=== PATIENT | male | born 1945 | race Caucasian/White ===

== ENCOUNTER 2020-07-06 06:36 | Observation (INO) ==
--- NOTE | 2020-06-16 11:48 | PAT Medication Instructions ---
Medication Instructions Date of Service June 16, 2020 Home Medications citalopram 20 mg PO QAM levothyroxine 150 mcg PO QAM meloxicam 15 mg PO QAM pramipexole 0.125 mg PO TID simvastatin 20 mg PO QAM zolpidem 10 mg PO HS tramadol 50 mg PO Q6H PRN ASK your surgeon for instructions meloxicam 15 mg PO QAM Take morning of surgery With a small sip of water, OTHERWISE NOTHING TO EAT OR DRINK AFTER MIDNIGHT: citalopram 20 mg PO QAM levothyroxine 150 mcg PO QAM pramipexole 0.125 mg PO TID simvastatin 20 mg PO QAM tramadol 50 mg PO Q6H PRN (if needed, may be taken up to four hours before surgery) Take evening before surgery pramipexole 0.125 mg PO TID zolpidem 10 mg PO HS tramadol 50 mg PO Q6H PRN (if needed) Other Notes If you have any questions please call us at [phone] or [phone] or [phone] or [phone]
--- NOTE | 2020-06-17 13:59 | Anesthesiology Consultation ---
Date of Service June 17, 2020 Assessment & Plan (1) Encounter for pre-operative examination: Chart Review Chart Review: Acceptable Risk for Surgery (pending surgeon ordered PCP clearance and preop Covid testing ) and Patient NOT seen in Pre Admission Testing Awaiting surgeon ordered PCP clearance- done 06/16/20 Per PAT appt on 06/17/20, pt denies any recent travel. No known Covid positive contacts or Covid related symptoms. No known Covid infection in the past 90 days. 06/24/20. Educated on importance of self quarantining, social distancing and wearing mask in public both for the patient and household contacts. Teaching & Discussion Pre-Anesthesia Teaching/Discussion Notes: Instructed NPO after midnight before surgery,except medications with 15 cc of water. Medication instructions provided according to the [facility] guidelines. History Surgery Operation Date: 06/29/20 13:05 Proposed Procedures p Right Total Knee Arthroplasty - Natalio Sharp DO Height/Weight Height: 5 ft 9 in Weight: 82.5 kg Allergies Allergy/AdvReac Type Severity Reaction Status Date / Time chlorhexidine Allergy Severe ? RELATED Verified 06/01/20 13:19 TO LAST KNEE INFECTION Medications Home Medications Medication Instructions Recorded Confirmed Last Taken citalopram 20 mg PO QAM 07/15/19 06/01/20 Unknown levothyroxine 150 mcg PO QAM 07/15/19 06/01/20 Unknown meloxicam 15 mg PO QAM 07/15/19 06/01/20 Unknown pramipexole 0.125 mg PO TID 07/15/19 06/01/20 Unknown simvastatin 20 mg PO QAM 07/15/19 06/01/20 Unknown zolpidem 10 mg PO HS 07/15/19 06/01/20 Unknown tramadol 50 mg PO Q6H PRN 06/01/20 06/01/20 Unknown Past Medical History Medical History Anxiety Cerebral aneurysm AGE 16> PT'S UNAWARE OF SIZE, DOES NOT HAVE TO GET IT CHECKED ANYMORE - STAYED STABLE IN SIZE Degenerative disc disease DJD (degenerative joint disease) Hyperlipidemia Hypothyroidism Osteoarthritis Restless leg syndrome Exercise / Class Metabolic Activity II 4-5 Yardwork/Stairs/Walk up hill (ONE FLIGHT OF STAIRS - NO CHEST PAIN OR SOB ) Past Family History Family History Other No significant family history Past Surgical History Surgical History History of carpal tunnel release RIGHT History of colonoscopy History of herniorrhaphy RT/LEFT INGUINAL History of skin cancer REMOVED FROM NOSE History of tonsillectomy History of tooth extraction History of total knee replacement LEFT Retinal tear of right eye REPAIRED Past Anesthesia History No Hx of Anesthesia Complications and No Family Hx of Anesthesia Complications History of PONV No Hx of PONV and No Hx of Motion Sickness Social History Smoking Status: Current every day smoker tobacco type: cigarettes Smoking cigarettes per day: 10 CIG DAILY Do You Dip or Chew Tobacco: No Hx Alcohol Use: Yes Alcohol type: beer alcohol intake frequency: 3 or more drinks per day Alcohol Intake Frequency Comment: 3 beers per day Hx Substance Use: No substance use type: does not use Review of Systems Rare reflux- diet dependent Patient denies chest pain, shortness of breath, dyspnea on exertion, cough, wheezing, palpitations. No hx of seizures, stroke, UT, apnea/snoring. No hx of blood clots or blood transfusions Physical Exam Vital Signs VITALS BP 130/57 P 60 TEMP 98.0 SP02 96% RESP 16 Constitutional no acute distress ENMT Mouth: no TMJ clicking Thyromental Distance: > or= 3.5 Finger Breadths (4.0) Mallampati Class: II (smaller airway ) Neck + limited neck extension Respiratory normal respiratory effort; no respiratory distress Auscultation: no wheezes Minimal course breath sounds throughout otherwise CTA Cardiovascular Rate/Rhythm: regular rate and regular rhythm Heart Sounds: no murmur Vessels: no carotid bruit Musculoskeletal Spine: no pain with cervical ROM Extremities: extremities normal to inspection Psychiatric Orientation: alert Testing Laboratory Results 06/17/20 14:18 06/17/20 14:18 PT 9.9 Seconds (9.0-12.0) 06/17/20 14:18 INR 1.0 (0.9-1.1) 06/17/20 14:18 APTT 26.4 Seconds (21.0-31.0) 06/17/20 14:18 Hemoglobin A1c 5.9 % (4.5-5.6) H 06/17/20 14:18 Urine Color Yellow 06/17/20 14:18 Urine Appearance Clear (Clear) 06/17/20 14:18 Urine pH 5.0 (4.5-7.5) 06/17/20 14:18 Ur Specific [place] 1.026 (1.000-1.030) 06/17/20 14:18 Urine Protein Negative (Negative) 06/17/20 14:18 Urine Glucose (UA) Negative (Negative) 06/17/20 14:18 Urine Ketones 1+ (Negative) H 06/17/20 14:18 Urine Nitrite Negative (Negative) 06/17/20 14:18 Ur Leukocyte Esterase Negative (Negative) 06/17/20 14:18 Blood Type A Positive 06/17/20 14:18 Antibody Screen NEGATIVE 06/17/20 14:18 Electrocardiogram Date: 06/17/20 Findings: + NSR @ (60bpm) and + no change from (Feb 14, 2014 per cardio ) Normal EKG. Chest X-Ray Date: 06/17/20 FINDINGS: Cardiomediastinal and hilar silhouettes are within normal limits. Chronic interstitial coarsening has mildly progressed from comparison (comparison from 2013). Calcified plaque the thoracic aorta. No pneumothorax, pleural effusion or overt pulmonary edema. Hyperinflation with mild diaphoretic flattening. IMPRESSION: Chronic interstitial coarsening without acute process. Echocardiogram Date: 05/13/16 EF: 60% LV Function: normal RWMA: + none Valvular Disease: + no significant valvular disease Aortic valve mildly thickened. No aortic insufficiency. Stress Test Date: 06/12/18 Type: exercise Nonspecific symptoms of exercise stress. Hemodynamic response to stress was normal. Exercise capacity was limited due to left knee pain and dyspnea. Nondiagnostic for ischemia due to artifact and not achieving target heart rate. MPHR 81%. 4 METS achieved.
--- NOTE | 2020-06-17 15:00 | XRay Report ---
XR chest Pre-admission PA/Lat HISTORY: 74 years-old Male pat preoperative exam. No acute chest complaints COMPARISON: Chest radiograph 10/14/2013 TECHNIQUE: PA and lateral views of the chest FINDINGS: Cardiomediastinal and hilar silhouettes are within normal limits. Chronic interstitial coarsening has mildly progressed from comparison. Calcified plaque the thoracic aorta. No pneumothorax, pleural eff usion or overt pulmonary edema. Hyperinflation with mild diaphoretic flattening. Degenerative changes of the shoulders and spine. IMPRESSION: Chronic interstitial coarsening without acute process. ACT 112: Negative or not required by law. The above report was generated using voice recognition software. It may contain grammatical, syntax o r spelling errors. Electronically signed by: Eric Davis M.D. 06/17/2020 2:59 PM
[2020-06-17 15:22] LABS: Basophils # (auto) 0.01 K/uL (0-0.2); Basophils % (auto) 0.2 %; Eosinophils # (auto) 0.09 K/uL (0-0.5); Eosinophils % (auto) 1.4 %; Hematocrit (blood only) 39.7 % (42-52); Hemoglobin 14.2 g/dL (14.0-18.0); Immature Granulocytes # (auto) 0.01 K/uL (0.00-0.02); Immature Granulocytes % (auto) 0.2 %; Lymphocytes % (auto) 34.8 %; Mean Corpuscular Hemoglobin 35.6 pg (25-34); Mean Corpuscular Hgb Conc 35.8 g/dL (32-36); Mean Corpuscular Volume 99.5 fL (80-100); Monocytes # (auto) 0.43 K/uL (0.11-0.59); Monocytes % (auto) 6.5 %; Neutrophils # (auto) 3.77 K/uL (1.4-6.5); Neutrophils % (auto) 56.9 %; Platelet Count 209 K/uL (130-400); RDW Coefficient of Variation 13.2 % (11.5-14.5); RDW Standard Deviation 47.9 fL (36.4-46.3); Red Blood Count 3.99 M/uL (4.7-6.1); White Blood Count 6.61 K/uL (4.8-10.8)
[2020-06-17 15:39] LABS: Partial Thromboplastin Time 26.4 Seconds (21.0-31.0); Prothrombin Time 9.9 Seconds (9.0-12.0)
[2020-06-17 15:42] LABS: Appearance Urine Clear (Clear); Bilirubin Urine Negative (Negative); Blood Urine Negative (Negative); Color Urine Yellow; Glucose Urine UA Negative (Negative); Ketones Urine 1+ (Negative); Leukocyte Esterase Urine Negative (Negative); Nitrite Urine Negative (Negative); Protein Urine Negative (Negative); Specific Gravity Urine 1.026 (1.000-1.030); Urobilinogen Urine Negative (Negative)
--- NOTE | 2020-06-17 16:10 | Electrocardiogram Report ---
Test Reason : Blood Pressure : / mmHG Vent. Rate : 060 BPM Atrial Rate : 060 BPM P-R Int : 166 ms QRS Dur : 102 ms QT Int : 440 ms P-R-T Axes : 066 055 063 degrees QTc Int : 440 ms Normal sinus rhythm Normal ECG When compared with ECG of 14-OCT-2013 13:16, No significant change was found Confirmed by Waylon Donovan ([id number]) on 06/17/2020 4:10:08 PM Referred By: Natalio Sharp Confirmed By:Naveen Donovan
[2020-06-17 16:21] LABS: Albumin Level 3.8 gm/dl (3.4-5.0); BUN Creatinine Ratio 19.5 (10-20); Creatinine Clr Calc Pharmacy 52.7 ml/min; Est GFR (African American) 67.5; Est GFR (Non-African American) 58.2; Potassium 4.1 mmol/L (3.5-5.1)
[2020-06-18 07:14] LABS: Estimated Average Glucose 123 mg/dl; Hemoglobin A1C 5.9 % (4.5-5.6)
--- NOTE | 2020-07-04 11:22 | History & Physical Report ---
Date of Service July 06, 2020 Assessment & Plan (1) Degenerative joint disease of knee, right: I have indicated the patient for right total knee replacement. The risks, benefits and complications of surgery were explained to the patient which include but not limited to infection, acute blood loss, DVT/PE, injury to nerves, vessels, bone, soft tissue, arthrofibrosis, chronic pain, failure of the prosthesis, knee dislocation, leg length discrepancy, need for additional surgery, cardiac and pulmonary events and . The patient wished to proceed with surgery and informed consent was obtained at this time. We will plan for 81mg ASA BID post-operatively for DVT prophylaxis. Upon discharge the patient will be discharged home with home health services. Appropriate clearances by PC P, cardio were obtained. History of Present Illness Chief Complaint: Right knee pain/DJD Primary Care Provider: Enrike Otto The patient is a 74 year old male who presents with complaints of severe right knee pain and DJD. The patient has failed outpatient conservative treatments to this point which included NSAIDs, IA corticosteroid and QUEEN injections, PT and HEP. The patient's pain and limited function have progressed to the point where they severely hinder their activities of daily living and they no longer tolerate exercise programs. They are requesting to proceed with total knee replacement surgery. Allergies Allergy/AdvReac Type Severity Reaction Status Date / Time chlorhexidine Allergy Severe ? RELATED Verified 06/01/20 13:19 TO LAST KNEE INFECTION Home Medications Medication Instructions Recorded Confirmed Type citalopram 20 mg PO QAM 07/15/19 06/01/20 History levothyroxine 150 mcg PO QAM 07/15/19 06/01/20 History meloxicam 15 mg PO QAM 07/15/19 06/01/20 History pramipexole 0.125 mg PO TID 07/15/19 06/01/20 History simvastatin 20 mg PO QAM 07/15/19 06/01/20 History zolpidem 10 mg PO HS 07/15/19 06/01/20 History tramadol 50 mg PO Q6H PRN 06/01/20 06/01/20 History Past Med/Surg History Medical History Anxiety Cerebral aneurysm AGE 16> PT'S UNAWARE OF SIZE, DOES NOT HAVE TO GET IT CHECKED ANYMORE - STAYED STABLE IN SIZE Degenerative disc disease DJD (degenerative joint disease) Hyperlipidemia Hypothyroidism Osteoarthritis Restless leg syndrome Surgical History History of carpal tunnel release RIGHT History of colonoscopy History of herniorrhaphy RT/LEFT INGUINAL History of skin cancer REMOVED FROM NOSE History of tonsillectomy History of tooth extraction History of total knee replacement LEFT Retinal tear of right eye REPAIRED Family History Other No significant family history Social History Smoking Status: Current every day smoker Cigarettes Per Day: 10 CIG DAILY; Smoking End Date: 2 yrs ago; Second Hand Exposure: No; Do You Dip or Chew Tobacco: No; Tobacco Cessation Education Requested by Patient: No Hx Alcohol Use: Yes Alcohol type: beer Hx Substance Use: No Preferred Language: Uzbek Communication Ability: Effective Nuclear Waste Process Operator Required: No Beliefs That Will Affect Care: None Current Living Situation: Spouse Other Information That Helps Us Care for You: No Feels Safe at Home: Yes Safety Concerns: Feels Safe At This Time Assistive Devices: Denture - Upper, Denture - Lower and Glasses Review of Systems Review of Systems: All systems reviewed & are unremarkable except as noted in HPI & below Constitutional: as per Subjective / HPI Physical Exam Physical Exam: RLE NVSI +EHL/FHL/TA/GS SILT grossly, +2 DP pulse, compartments soft NT, limited painful ROM, 0-115 degrees flexion, +crepitus. Constitutional: WD/WN, vitals as above Eyes: PERRL, conjunctivae normal, anicteric sclerae ENMT: external ear and nose normal, oropharynx normal Neck: trachea midline, no thyromegaly Respiratory: normal respiratory effort, lungs clear to auscultation Cardiovascular: RRR, no murmur, no edema Gastrointestinal (Abdomen): normal bowel sounds, soft, nontender, no hepatos plenomegaly Musculoskeletal: no cyanosis or clubbing, extremities motor strength 5/5 Skin: no rashes, warm and dry Neurologic: patellar DTR's 2+ bilat, sensation intact Psychiatric: A+Ox3, euthymic affect Lymphatic: no cervical or axillary lymphadenopathy Results & Data Results & Data ([facility]) Diagnostic Findings Multiple views of the knee demonstrates severe tricompartmental DJD with complete loss of the medial joint space. +osteophytes, +sclerosis, +subchondral cysts. Pre Admission Testing Addendum Laboratory Results 06/17/20 14:18 06/17/20 14:18 PT 9.9 Seconds (9.0-12.0) 06/17/20 14:18 INR 1.0 (0.9-1.1) 06/17/20 14:18 APTT 26.4 Seconds (21.0-31.0) 06/17/20 14:18 Hemoglobin A1c 5.9 % (4.5-5.6) H 06/17/20 14:18 Urine Color Yellow 06/17/20 14:18 Urine Appearance Clear (Clear) 06/17/20 14:18 Urine pH 5.0 (4.5-7.5) 06/17/20 14:18 Ur Specific [place] 1.026 (1.000-1.030) 06/17/20 14:18 Urine Protein Negative (Negative) 06/17/20 14:18 Urine Glucose (UA) Negative (Negative) 06/17/20 14:18 Urine Ketones 1+ (Negative) H 06/17/20 14:18 Urine Nitrite Negative (Negative) 06/17/20 14:18 Ur Leukocyte Esterase Negative (Negative) 06/17/20 14:18 Blood Type A Positive 06/17/20 14:18 Antibody Screen NEGATIVE 06/17/20 14:18 06/17/20 14:18 Urine Culture - Final Urine,Clean Catch No growth - less than 1,000 colonies/mL.
[~2020-07-06 06:36] MED LIST: ACETAMINOPHEN 500 MG TAB PO SCH; BUPIVACAINE 0.5 % 5 MG/1 ML PF 10ML VIAL ONE; CeleBREX 200 MG CAP PO SCH; EPINEPHrine INJ 1 MG/ML AMP ONE; FAMOTIDINE 20 MG TAB PO SCH; LR 500ML BOLUS, THEN 15ML/HR IV SCH; METOCLOPRAMIDE HCL 10 MG TABLET PO SCH; ROPIVACAINE 0.5% 5 MG/ML 30 ML VIAL ONE; ROPIVACAINE 0.5% HCL/PF 150 MG, BUPIVACAINE 0.75% MPF 20 ML, EPINEPHrine 30MG/30ML (OR ... INFIL SCH; ROPIVACAINE 0.5% HCL/PF 150 MG, BUPIVACAINE 0.75% MPF 20 ML, EPINEPHrine 30MG/30ML (OR ... INSTIL SCH; TRANEXAMIC ACID 1,000 MG **IV Intra-op IV SCH; TRANEXAMIC ACID 1,000 MG **IV Pre-op IV SCH; ceFAZolin 2000MG 2,000 MG/15 ML SYR IV SCH; dexAMETHasone 4 MG TAB PO SCH
[2020-07-06] MEDS ORDERED: fentaNYL citrate 100 MCG/2 ML VIAL ONE (06:47)
[2020-07-06] MEDS ORDERED: LIDOCAINE HCL 2% 2 ML VIAL/AMP(20MG/ML) INFIL ONE (06:47)
[2020-07-06] MEDS ORDERED: ONDANSETRON INJ 2 MG/ML 2 ML VIAL ONE (06:47)
[2020-07-06] MEDS ORDERED: MIDAZOLAM HCL 1 MG/ML 2ML VIAL ONE (06:47)
[2020-07-06] MEDS ORDERED: PROPOFOL IV EMULSION 10 MG/ML 20 ML VIAL IV ONE ×2 (06:47→08:41)
--- NOTE | 2020-07-06 07:23 | History & Physical Bridge Note ---
Date of Service July 06, 2020 History & Physical Bridge Note I have examined the patient, reviewed the History & Physical and in the interval since the performance of the History & Physical I have noted the following changes of clinical significance: no changes noted
[2020-07-06] MEDS ORDERED: ORTHO JOINT ANESTHETIC ONE (07:24)
[2020-07-06] MEDS ORDERED: BACITRACIN INJ 50,000 UNIT VIAL ONE (07:24)
[2020-07-06] MEDS ORDERED: ALBUTEROL HFA INHALER 8.5 GM ONE (08:53)
--- NOTE | 2020-07-06 10:31 | Post Operative Brief Note ---
Immediate Post Op Note v1 Date of Surgery July 06, 2020 Pre & Post Diagnosis Operation Date: 07/06/20 09:00 Pre-Op Diagnosis: Unilateral Primary Osteoarthritis, Right Knee Post-Op Diagnosis: Unilateral Primary Osteoarthritis, Right Knee I identified the patient and participated in the time-out.: Yes Procedure Operation Date: 07/06/20 09:00 <No data on this case meets the specified criteria> Surgeon Natalio Sharp DO Professional Athletes Coach Amor Torres Estimated Blood Loss 55 Findings Consistent with Post-Op Diagnosis Fluids See anesthesia report Specimens Proximal tibia and distal femur bone fragment Anesthesia Type Spinal MAC Complications none Disposition Disposition: Recovery Room Overlapping Procedure I was present for: the critical portions of procedure. I was immediately available: during the entire case. Back up surgeon: was not required during procedure.
--- NOTE | 2020-07-06 10:33 | Operative Report ---
Post Operative Report Pre & Post Diagnosis Operation Date: 07/06/20 09:00 Pre-Op Diagnosis: Unilateral Primary Osteoarthritis, Right Knee Post-Op Diagnosis: Unilateral Primary Osteoarthritis, Right Knee I identified the patient and participated in the time-out.: Yes Procedure Operation Date: 07/06/20 09:00 Right total knee replacement - Natalio Sharp DO Surgeon Natalio Sharp DO Kiln Repairer Amor Torres Estimated Blood Loss 55 Findings Consistent with Post-Op Diagnosis Fluids See anesthesia report Specimens Proximal tibia and distal femur bone fragments Anesthesia Type Spinal MAC Complications none Disposition Disposition: Recovery Room Indications The patient is a 74-year-old male presents with long history of severe right knee tricompartmental DJD and failed outpatient conservative treatments including NSAIDs, bracing, injections and home walking/exercise program. The patient's symptoms have progressed to the point where it has been difficult to perform normal activities of daily living. I have indicated the patient for a right total knee arthroplasty, the risks and benefits and complications of the procedure include but are not limited to infection bleeding damage to bone, nerves, vessels, surrounding soft tissue, blood clots, loss of function, leg length discrepancy, dislocation, failure of the components, need for additional surgery and . The patient wished to proceed with surgery at this time and informed consent was obtained. Appropriate clearances were obtained. Description of Procedure The patient was taken to the operating room and appropriate spinal anesthesia was administered. The patient was placed supine on the operating room table. A foot roll was placed so we could flex the knee during the procedure as needed. A pneumatic tourniquet was placed on the proximal aspect of the thigh. The right lower extremity was prepped and draped in usual sterile fashion. A timeout was performed, patient and site werner verified and IV antibiotics given. The leg was elevated, exsanguinated with Esmarch bandage. Pneumatic tourniquet was raised to 300 mmHg. A longitudinal midline incision was made over the anterior knee. Skin was incised sharply and subcutaneous flaps were elevated. Incision was made through the medial retinaculum extended up in the mid third of the quadriceps tendon and extended down to the medial tibial tubercle. The Sarah [employer] Nephew Journey 2.0 total knee arthroplasty system was used using [place] MRI templating and femur sized for a 7, tibial sized for a 5. To expose the knee the infrapatellar fat pad was resected. The lateral synovial bands were released. The cruciate ligaments were resected. The meniscal remnants were resected. The fat pad over the anterior femur just above the articular surface for placement of the component in that area was resected. The knee was flexed and retractors were placed and the custom femoral cutting block was pinned in position and the distal femoral cut was made. Next, the size 7, 5-in-1 cutting block was pinned into place and the anterior, posterior and chamfer cuts were made. The 5-in-1 cutting block was removed. Next, attention was taken back to the tibia which was subluxed anteriorly and the custom tibial cutting block was pinned in position and the proximal tibial cut was made. The tibia guide was removed and proximal tibial bone fragment removed utilizing straight osteotome, electrocautery and michael. Laminar diesel maintenance electrician was placed laterally and the ACL and PCL were removed followed by the medial meniscus and posterior medial osteophytes. Aquamantys was utilized for any posterior medial bleeders and Orthomix injected into the posterior medial capsule. A laminar diesel maintenance electrician was then placed in the medial compartment and the lateral meniscus and posterior osteophytes were removed. Aquamantys was utilized for any posterior lateral bleeders and Orthomix injected into the posterior lateral capsule. Next, ligamentous balance was assessed in extension and flexion utilizing spacer block and drop zoraida. At this time, the tibia was then resubluxed and the 5 tibial trial was placed in position with appropriate external rotation in relationship to the tibial tubercle. The tibial drill and punch for the stem was used. Next the 7 femoral trial was inserted, centered and the notch cutting devices were used to finish prepping the femur. A trial 9 mm tibial articulating surface was inserted assessed ligamentous balance, the tibial size was increased sequentially testing for knee balance in full ROM, varus/valgus. The 9 mm trial insert gave balanced ligaments through full range of motion. At this time the knee was extended and a subperiosteal peel lateral release was performed around the patella. Patella width was measured and the patella was prepped utilizing free hand technique and the 3 drill holes were made for the pegs. The excess lateral facet was beveled off to prevent any impingement. A 32 mm oval patella button was placed and the patella tracked centrally. The trials were removed and the knee was copiously irrigated with pulsatile lavage antibiotic solution with bacitracin. The final components were then cemented into place and trial tibial articulating surface inserted. Final components were the size 7 Oxinium posterior stabilized Saarh and Nephew Journey 2.0 left femoral component, size 5 primary tibial baseplate and 32 mm patella. Once the cement cured, we trialed once more with the 9 mm tibial articulating surface and found the knee to be stable throughout full ROM. The trial component was removed and the final 9 mm tibial articular surface was inserted. Tiffanie-incisional soft tissue was injected utilizing [place] Orthomix which in cludes a combination of Ropivicaine 0.5% 150mg, Bupivicaine 0.5%/Epinephrine 1:200,000 30ml, Toradol 30mg, Dexamethasone 4mg, Ketamine 10mg, Clonidine 100mcg and NSS 30ml solution. A Betadine soak was performed. After 3 minutes, the knee was once more irrigated with copious sterile saline solution with bacitracin. The medial retinaculum were closed with interrupted [id number] #1 Vicryl sutures. The knee was taken through full range of motion and repair was secure. Subcutaneous tissues were closed with interrupted 2-0 Vicryl sutures followed by 3-0 V lock and then the skin was closed with Prineo Dermabond skin closure system. The sterile dressings were applied which included Telfa, 4 x 4's and an New wrap from the foot to thigh. Tourniquet was let down at 73 and the patient had good capillary refill to the extremity. The patient tolerated the procedure well and was taken to the PACU in stable condition. Due to the complex nature of the procedure, the entire surgery was performed with the operational assistance of Amor Torres PA-C. The bilingual administrative assistant, under direct supervision, was involved in the actual performance of all aspects of the surgical procedure including patient positioning, hemostasis, tissue retraction, instrument management and wound closure. I attest to the content of the Intraoperative Record and any orders documented therein. Any exceptions are noted below.
--- NOTE | 2020-07-06 11:34 | XRay Report ---
RIGHT KNEE 2 VIEWS History: Right total knee arthroplasty. Degenerative arthritis. Postop. FINDINGS: The patient is status post a right total knee arthroplasty. The hardware is intact. No frac ture or dislocation. Skin tiffanie are in place. IMPRESSION: Right total knee arthroplasty. No evidence for hardware complication. ACT 112: Negative or not required by law. Electronically signed by: Tomas Rao M.D. 07/06/2020 11:33 AM
--- NOTE | 2020-07-06 12:44 | Anesthesiology Progress Note ---
Date of Service July 06, 2020 Anesthesia Post Procedure Vital Signs Vital Signs: Temp Pulse Pulse Resp BP BP Pulse Ox 07/06/20 12:30 36.4 C L 65 20 112/57 L 97 07/06/20 12:20 66 20 108/58 L 99 07/06/20 12:10 63 16 103/52 L 97 07/06/20 12:00 57 L 16 121/51 L 97 07/06/20 11:50 58 L 20 125/50 L 99 07/06/20 11:40 57 L 20 114/71 97 07/06/20 11:30 36.3 C L 52 L 16 127/59 L 97 07/06/20 11:20 64 20 119/51 L 98 07/06/20 11:10 55 L 18 99/53 L 98 07/06/20 11:00 69 20 101/50 L 95 07/06/20 10:58 36.2 C L 68 20 96/50 L 94 07/06/20 07:30 36.8 C 66 20 106/70 94 Transfer of Care Handoff Completed per policy Notes Mental Status: alert / awake / arousable and participated in evaluation Patient Amnestic to Procedure: Yes Nausea / Vomiting: adequately controlled Pain: adequately controlled Airway Patency, RR, SpO2: stable & adequate BP & HR: stable & adequate Hydration State: stable & adequate Neuraxial Anesthesia: was administered and sensory block is resolving Anesthetic Complications: no major complications apparent and Pt Satisfied with anesthetic care
[2020-07-06] MEDS ORDERED: ZOLPIDEM TARTRATE 10 MG TAB PO PRN (13:01)
[2020-07-06] MEDS ORDERED: diphenhydrAMINE Capsule 25 MG CAP PO PRN (13:01)
[2020-07-06] MEDS ORDERED: MAGNESIUM HYDROXIDE SUSP 30 ML UDC PO PRN (13:01)
[2020-07-06] MEDS ORDERED: METOCLOPRAMIDE HCL INJ 5 MG/ML 2 ML VIAL IV PRN (13:01)
[2020-07-06] MEDS ORDERED: HYDROmorphone INJ 0.5 MG/0.5 ML SYR IV PRN (13:01)
[2020-07-06] MEDS ORDERED: ONDANSETRON INJ 2 MG/ML 2 ML VIAL IV PRN (13:01)
[2020-07-06] MEDS ORDERED: NALOXONE HCL 0.4 MG/1 ML VIAL/CARP IV PRN (13:01)
[2020-07-06] MEDS ORDERED: bisacodyL 10 MG SUPP PR PRN (13:01)
[2020-07-06] MEDS: SODIUM CHLORIDE 0.9% 1000ML 1,000 ML IV SCH (14:00)
[2020-07-06] MEDS: ACETAMINOPHEN 500 MG TAB PO SCH ×2 (14:01→21:18)
[2020-07-06] MEDS: KETOROLAC TROMETHAMINE 15 MG/ML VIAL IV SCH ×3 (14:01→23:15)
[2020-07-06] MEDS: PRAMIPEXOLE DIHYDROCHLO 0.25 MG TAB PO SCH ×2 (14:17→20:24)
[2020-07-06] MEDS: ceFAZolin 2000MG 2,000 MG/15 ML SYR IV SCH (17:29)
[2020-07-06] MEDS: NICOTINE 14 MG/24 HR PATCH TD SCH (18:06)
--- NOTE | 2020-07-06 20:14 | Orthopedic Progress Note ---
Date of Service July 06, 2020 Assessment & Plan (1) Degenerative joint disease of knee, right: s/p R TKA -ancef x 24 -DVT ppx: SCDs, TEDs, 81mg ASA BID -WBAT RLE -PT/OT -PO XR demonstrates a well aligned well fixed prothesis without fracture/dislocation -am labs -DC planning Admission and Anticipated Discharge Date Admission Date: July 06, 2020 Subjective Post Operative Progress Note Patient seen sitting up in bed, comfortable, denies complaints, pain well controlled, no acute issues. Review of Systems 2 Review of Systems: All systems reviewed & are unremarkable except as noted in HPI & below Constitutional: as per Subjective / HPI Physical Exam Physical Exam: RLE NVSI +EHL/FHL/TA/GS SILT grossly, +2 DP pulse, compartments soft NT, dressing cdi. Constitutional: WD/WN, vitals as above Results & Data ([facility]) Vital Signs (Past 12 Hours) Vital Signs Temp Pulse Pulse Pulse Resp BP BP 07/06/20 19:15 36.6 C 64 18 91/43 L 107/47 L 07/06/20 16:02 36.5 C 55 L 16 125/68 07/06/20 14:41 61 16 93/58 L 07/06/20 13:54 36.7 C 66 16 113/64 07/06/20 13:46 62 16 109/61 07/06/20 13:14 36.6 C 54 L 17 115/64 07/06/20 13:04 36.5 C 56 L 18 106/53 L 07/06/20 12:30 36.4 C L 65 20 112/57 L 07/06/20 12:20 66 20 108/58 L 07/06/20 12:10 63 16 103/52 L 07/06/20 12:00 57 L 16 121/51 L 07/06/20 11:50 58 L 20 125/50 L 07/06/20 11:40 57 L 20 114/71 07/06/20 11:30 36.3 C L 52 L 16 127/59 L 07/06/20 11:20 64 20 119/51 L 07/06/20 11:10 55 L 18 99/53 L 07/06/20 11:00 69 20 101/50 L 07/06/20 10:58 36.2 C L 68 20 96/50 L Pulse Ox 07/06/20 19:15 94 07/06/20 16:02 98 07/06/20 14:41 96 07/06/20 13:54 97 07/06/20 13:46 98 07/06/20 13:14 96 07/06/20 13:04 99 07/06/20 12:30 97 07/06/20 12:20 99 07/06/20 12:10 97 07/06/20 12:00 97 07/06/20 11:50 99 07/06/20 11:40 97 07/06/20 11:30 97 07/06/20 11:20 98 07/06/20 11:10 98 07/06/20 11:00 95 07/06/20 10:58 94
[2020-07-06] MEDS: oxyCODONE HCL IR 5 MG TAB (IMMEDIATE RELEASE) PO PRN (20:23)
[2020-07-06] MEDS: DOCUSATE SODIUM 100 MG CAP PO SCH (20:24)
[2020-07-06] MEDS ORDERED: SENNA 8.6 MG TAB PO SCH (21:00)
[2020-07-07] MEDS: SODIUM CHLORIDE 0.9% 1000ML 1,000 ML IV SCH (00:08)
[2020-07-07] MEDS: ceFAZolin 2000MG 2,000 MG/15 ML SYR IV SCH (01:35)
[2020-07-07] MEDS: oxyCODONE HCL IR 5 MG TAB (IMMEDIATE RELEASE) PO PRN (03:40)
[2020-07-07] MEDS: KETOROLAC TROMETHAMINE 15 MG/ML VIAL IV SCH (05:02)
[2020-07-07] MEDS: ACETAMINOPHEN 500 MG TAB PO SCH (05:02)
[2020-07-07] MEDS ORDERED: LEVOTHYROXINE SODIUM 150 MCG TABLET PO SCH (06:30)
[2020-07-07 08:17] LABS: Hematocrit (blood only) 35.6 % (42-52); Hemoglobin 12.6 g/dL (14.0-18.0); Mean Corpuscular Hemoglobin 35.3 pg (25-34); Mean Corpuscular Hgb Conc 35.4 g/dL (32-36); Mean Corpuscular Volume 99.7 fL (80-100); Mean Platelet Volume 9.9 fL (7.4-10.4); Platelet Count 239 K/uL (130-400); RDW Coefficient of Variation 12.8 % (11.5-14.5); RDW Standard Deviation 46.9 fL (36.4-46.3); Red Blood Count 3.57 M/uL (4.7-6.1); White Blood Count 15.06 K/uL (4.8-10.8)
[2020-07-07] MEDS: DOCUSATE SODIUM 100 MG CAP PO SCH (08:41)
[2020-07-07] MEDS: PRAMIPEXOLE DIHYDROCHLO 0.25 MG TAB PO SCH (08:41)
[2020-07-07] MEDS: NICOTINE 14 MG/24 HR PATCH TD SCH (08:43)
[2020-07-07 08:51] LABS: BUN Creatinine Ratio 21.1 (10-20); Calcium 8.7 mg/dl (8.5-10.1); Creatinine Clr Calc Pharmacy 67.9 ml/min; Est GFR (African American) 95.2; Est GFR (Non-African American) 82.2; Potassium 3.9 mmol/L (3.5-5.1)
[2020-07-07] MEDS ORDERED: ASPIRIN 81 MG ECTAB PO SCH (09:00)
[2020-07-07] MEDS ORDERED: CITALOPRAM 20 MG TAB PO SCH (09:00)
[2020-07-07] MEDS ORDERED: SIMVASTATIN 20 MG TAB PO SCH (09:00)
[2020-07-07] MEDS ORDERED: MULTIVITAMIN TAB PO SCH (09:00)
--- NOTE | 2020-07-07 12:27 | Orthopedic Progress Note ---
Date of Service July 07, 2020 Assessment & Plan (1) Degenerative joint disease of knee, right: s/p R TKA POD#1 -ancef x 24 -DVT ppx: SCDs, TEDs, 81mg ASA BID -WBAT RLE -PT/OT -PO XR demonstrates a well aligned well fixed prothesis without fracture/dislocation -am labs - as above, hgb 12.6 -DC planning - home with Admission and Anticipated Discharge Date Admission Date: July 06, 2020 Subjective Post Operative Progress Note Patient seen sitting up in bed, comfortable, denies complaints, pain well controlled, no acute issues. Denies F/C/N/V/SOB/CP. Review of Systems Review of Systems: All systems reviewed & are unremarkable except as noted in HPI & below Constitutional: as per Subjective / HPI Physical Exam Physical Exam: RLE NVSI +EHL/FHL/TA/GS SILT grossly, +2 DP pulse, compartments soft NT, dressing cdi. Constitutional: WD/WN, vitals as above Results & Data ([facility]) Vital Signs (Past 12 Hours) Vital Signs Temp Pulse Pulse Pulse Resp BP BP 07/07/20 10:52 36.7 C 65 44 L 66 18 91/43 L 127/57 L 07/07/20 08:27 36.7 C 44 L 18 127/57 L 07/07/20 04:04 36.6 C 51 L 16 124/66 Pulse Ox 07/07/20 10:52 94 07/07/20 08:27 94 07/07/20 04:04 92 Laboratory Results 07/07/20 07/07/20 Range/Units 07:26 07:26 WBC 15.06 H (4.8-10.8) K/uL RBC 3.57 L (4.7-6.1) M/uL Hgb 12.6 L (14.0-18.0) g/dL Hct 35.6 L (42-52) % MCV 99.7 (80-100) fL MCH 35.3 H (25-34) pg MCHC 35.4 (32-36) g/dL RDW Std Deviation 46.9 H (36.4-46.3) fL RDW Coeff of Mamie 12.8 (11.5-14.5) % Plt Count 239 (130-400) K/uL MPV 9.9 (7.4-10.4) fL Sodium 137 (136-145) mmol/L Potassium 3.9 (3.5-5.1) mmol/L Chloride 106 (98-107) mmol/L Carbon Dioxide 25 (21-32) mmol/L Anion Gap 6.0 (3-11) BUN 19 H (7-18) mg/dl Creatinine 0.91 (0.6-1.4) mg/dl Est Cr Clr Drug Dosing 67.9 ml/min Est GFR ( Amer) 95.2 Est GFR (Non-Af Amer) 82.2 BUN/Creatinine Ratio 21.1 H (10-20) Glucose 121 H (70-99) mg/dl Calcium 8.7 (8.5-10.1) mg/dl
[2020-07-07] MEDS ORDERED: CeleBREX 200 MG CAP PO SCH (21:00)
--- NOTE | 2020-07-07 21:33 | Discharge Summary ---
Date of Service July 07, 2020 Admission HPI Per Admitting Provider The patient is a 74 year old male who presents with complaints of severe right knee pain and DJD. The patient has failed outpatient conservative treatments to this point which included NSAIDs, IA corticosteroid and QUEEN injections, PT and HEP. The patient's pain and limited function have progressed to the point where they severely hinder their activities of daily living and they no longer tolerate exercise programs. They are requesting to proceed with total knee replacement surgery. Principal Diagnosis Right total knee replacement Discharge Exam RLE NVSI +EHL/FHL/TA/GS SILT grossly, +2 DP pulse, compartments soft NT, dressing cdi. Constitutional WD/WN, vitals as above Discharge Data Allergies Allergy/AdvReac Type Severity Reaction Status Date / Time chlorhexidine Allergy Severe ? RELATED Verified 07/06/20 07:25 TO LAST KNEE INFECTION iodine Allergy Severe Blister Verified 07/06/20 07:26 Procedures Performed Operation Date: 07/06/20 09:00 Actual Procedures p Right Total Knee Arthroplasty(Right) - Natalio Sharp DO Ordered Studies 06/29/20 05:00 US - OR guided needle placemen Routine 07/06/20 05:00 US - OR guided needle placemen Routine Hospital Course (1) Degenerative joint disease of knee, right: The patient is a 74 -year-old male who presents with long standing history of severe right knee DJD and failed outpatient conservative treatments. The patient's symptoms have progressed to the point where it has been difficult to perform even normal activities of daily living. I indicated the patient for a right total knee arthroplasty, the risks, benefits and complications of the procedure include but not limited to infection, bleeding, damage to bone, nerves, vessels, surrounding soft tissue, may develop blood clots, loss of function, leg length discrepancy, dislocation, failure of the components, loosening of the components, the need for additional surgery and . The patient wished to proceed with surgery at this time and informed consent was obtained. Hospital Course: On 07/06/20 the patient was taken to the operating room, adequate anesthesia administered and underwent a right total knee arthroplasty. The patient tolerated the procedure well and was taken to the PACU in stable condition. Post-operatively the patient was started on a DVT ppx medication and given appropriate IV antibiotics. Consults were placed to physical therapy, occupational therapy and case management. On POD#1, the patient did well overnight and their pain was well controlled. Labs were drawn and the Hgb was 81mg ASA BID. The patient progressed well with PT. Dressings were changed at this time and the incision was clean, dry and intact. The patients hospital stay was relatively uneventful and they were deemed stable by the orthopedic team and consultants to be discharged home with HH on 07/07/20. Discharge Instructions: Upon discharge the patient may weight bear as tolerates through their operative extremity. They were instructed to keep the incision clean and dry at all times. The patient may shower but should not submerge the incision, avoid bathing, pools and hot tubs. The patient was given a script for pain medication and should take as instructed. The patient was given a script for DVT ppx 81mg ASA BID and should take as directed. The patient was instructed to not drive or travel for long distances until cleared to do so. If the patient develops any symptoms of fevers, chills, nausea, vomiting, increased redness, swelling, pain or drainage from the surgical site, they should notify the office and/or proceed to the nearest emergency room. The patient should follow up in 10-14 days after surgery for their routine post-operative follow-up appointment and should call the office, to confirm the date and time. s/p R TKA POD#1 -ancef x 24 -DVT ppx: SCDs, TEDs, 81mg ASA BID -WBAT RLE -PT/OT -PO XR demonstrates a well aligned well fixed prothesis without fracture/ dislocation -am labs - as above, hgb 12.6 -DC planning - home with Total Time Total Time Spent Total Time Spent (In Minutes): 30 Discharge Plan Discharge Items Patient Disposition: Home - Home Health Services Reason For Visit: Unilateral Primary Osteoarthritis, Right Knee Discharge Diagnosis: Right total knee replacement Condition on Discharge: Good Activity: Per Instructions section Lifting: Wait until after follow-up appointment Bathing: Keep incision dry Bathing Comment: No bathing, pools or hot tubs. Sexual Activity: Wait until after follow-up appointment Exercise/Sports: Wait until after follow-up appointment Driving/Machine Use: No driving. Weightbearing: Full weightbearing Non-emergency contact: Primary Care Provider and Surgeon Call non-emergency contact if: you have any medication questions, your symptoms worsen, your pain is not controlled, your pain is worsening, your pain is unusual for you, your pain is concerning for you, you have a fever, your temperature is above 101, your wound has increased redness, your wound has increased drainage and your wound pain has increased Follow-up/Referrals: Enrike Otto D.O. [Primary Care Provider] - Diet: Regular Addtl Attending Provider Instructions: ACTIVITY RECOMMENDATIONS: SELF CARE INSTRUCTIONS AFTER TOTAL KNEE REPLACEMENT A. You may need to continue a physical therapy program after discharge from the hospital. There are several options available to you. Your doctor will assist you in selecting the best one for you. 1. An out-patient facility 2 to 3 times a week for therapy or home therapy. 2. Continue working on all exercises taught to you in the hospital. Your goals should be to increase bending of your knee to 90 degrees and beyond and to fully straighten your knee. B. You may progress at your own pace from walking with a walker or crutches to a cane; then to no assistive devices. C. Make walking a part of your daily routine. Be up as much as comfortable with rest periods throughout the day. Rest with leg elevation is very important. Use the ice wrap frequently for the first 3-4 weeks. D. There are no restrictions on activities. You may ride in a car, shop, participate in item processor and all social activities. E. Wear the long elastic stockings (LETI hose) 20 hours a day for 2 weeks after surgery. They can be removed several times a day for laundering and for a bath. F. You may shower, no tub baths until cleared by your doctor. SPECIAL CARE INSTRUCTIONS: VERY IMPORTANT TO READ AND REVIEW A. There are a few signs you need to watch for after you are home. Call [facility] if you notice any of the followin. Increased severe knee pain. Some pain is expected especially when you exercise. 2. Increased swelling in your leg or knee; pain or swelling of the calf muscle in either lower leg. 3. Any fluid drainage from the incision. 4. Shortness of breath or chest pain. B. Please call [facility] at if you have any concerns or questions about your operation or recovery. The doctor or his nurse will return your call promptly. C. You must take antibiotics before dental work, bladder, bowel or other surgery. Your doctor will provide you with a permanent care to carry describing this precaution. IMPORTANT: * REMEMBER TO TAKE ASPIRIN, 81 MG, TWICE DAILY FOR 4 WEEKS UNLESS OTHERWISE DIRECTED. THIS IS YOUR BLOOD THINNER. * HIGH RISK PATIENTS MAY BE PRESCRIBED A STRONGER BLOOD THINNER. THIS WILL BE PROVIDED AT DISCHARGE. * CALL IF INCREASED PAIN, REDNESS, DRAINAGE OR FEVER GREATER THAT 101. * WEAR LETI HOSE 20 HOURS PER DAY FOR 2 WEEKS. * YOU MAY HAVE A LARGE BAND-AID LIKE DRESSING (SILVERON). THIS WILL REMAIN ON YOUR INCISION FOR 7 DAYS, THEN CAN BE REMOVED. IF INCISION IS LEAKING THROUGH DRESSING, CALL THE OFFICE . FOLLOW UP VISIT: If appointment is not already scheduled: Please call [facility] to make a follow-up appointment for 2 weeks after your surgery at . Pending Studies at Discharge: No Stand-Alone Forms: My [facility] [employer], Opioid Pain Management, Smoking Cessation Medications and DC Order Prescriptions: New acetaminophen 500 mg Tablet 1,000 mg PO Q8 PRN (Reason: fever or pain) Qty: 90 RF: 0 aspirin 81 mg Tablet,Delayed Release (Dr/Ec) 81 mg PO BID Qty: 56 RF: 0 celecoxib [Celebrex] 200 mg Capsule 200 mg PO BID PRN (Reason: pain) Qty: 28 RF: 0 oxycodone 5 mg Tablet 5 mg PO Q6H MDD 4 PRN (Reason: pain) Qty: 30 RF: 0 sennosides [Senokot] 8.6 mg Tablet 17.2 mg PO HS PRN (Reason: constipation) Qty: 28 RF: 0 Continued levothyroxine 137 mcg Tablet 150 mcg PO QAM RF: 0 citalopram [Celexa] 20 mg Tablet 20 mg PO QAM RF: 0 simvastatin 20 mg Tablet 20 mg PO QAM RF: 0 pramipexole [Mirapex] 0.125 mg Tablet 0.125 mg PO TID RF: 0 zolpidem 10 mg Tablet 10 mg PO HS RF: 0 Discontinued meloxicam 15 mg Tablet 15 mg PO QAM RF: 0 tramadol 50 mg Tablet 50 mg PO Q6H PRN (Reason: Pain) RF: 0 Discharge Orders: Discharge Order (Routine); Ordered 07/07/20 Ordered By: Natalio Smiley/Other Patient Handouts: DVT Post Op Prevention Admission Data Admit Date/Time: 07/06/20 11:02 Attending Provider: Natalio Sharp Admit Provider: Natalio Sharp Primary Care Provider: Enrike Otto Other Interventions: Discharge Summary Assessment (RN) Last Done: 07/07/20 10:52
== END 2020-07-07 13:26 | disposition home health service (06) ==
LOC: ASU 06:36 → 3E 06:36